=== PATIENT | female | born 1955 | race Caucasian/White ===

== ENCOUNTER 2024-10-22 16:21 | Inpatient (IN) | payer MEDICARE, SELFPAY ==
[2024-10-22] VITALS (9 sets, daily range): BP systolic 110–156; BP diastolic 71–109; PULSE 96–115; RESP 16–18; TEMP 36.6; O2SAT 93–96; BMI 22.8
--- NOTE | 2024-10-22 16:24 | XRR_ITS ---
PROCEDURE INFORMATION: Exam: XR Chest Exam date and time: 10/22/2024 6:37 PM Age: 69 years old Clinical indication: Cough and shortness of breath TECHNIQUE: Imaging protocol: Radiologic exam of the chest. Views: 1 view. COMPARISON: No relevant prior studies available. FINDINGS: Lungs: Bilateral diffuse increased interstitial lung opacities. Minimal bibasilar subsegmental atelectasis. Pleural spaces: Small bilateral pleural effusions. Heart/Mediastinum: The heart is enlarged. Vasculature: Calcific plaque involves the aortic knob. Bones/joints: Unremarkable. XR/XR chest 1V portable [id number] IMPRESSION: Cardiomegaly with increased interstitial lung opacities likely reflecting a component of interstitial edema with small bilateral pleural effusions.
[2024-10-22 18:09] LABS: Influenza A NEGATIVE (Negative); Influenza B NEGATIVE (Negative); Respiratory Syncytial Virus Ce NEGATIVE (Negative); SARS-CoV-2 PCR NEGATIVE (Negative)
[2024-10-22 18:53] LABS: Bilirubin Urine Negative (Negative); Blood Urine Trace (Negative); Glucose Urine UA Negative (Normal); Ketones Urine Negative (Negative); Leukocyte Esterase Urine Trace (Negative); Nitrate Urine Positive (Negative); Protein Urine Negative (Negative); Specific Gravity, Urine 1.004 (1.005-1.030); Urine Appearance Clear (CLEAR); Urine Color Yellow (Yellow); Urobilinogen Urine 0.2 mg/dL (Negative)
[2024-10-22 18:58] LABS: Add Urine Microscopic? YES; Bacteria Urine 4+ /hpf; Hyaline Casts Urine 0-4 /lpf; RBC Urine 0-2 /hpf (0-2); Squamous Epithelial Cell Urine 0-5 /hpf (0-5); WBC Urine 0-5 /hpf (0-5)
[2024-10-22 19:01] LABS: Add Urine Culture? No
[2024-10-22 20:35] LABS: Basophils % 0.3 %; Hematocrit 40.4 % (36-47); Lymphocytes # 1.1 10^3/uL (0.8-4.8); Lymphocytes % 17.7 %; Mean Corpuscular HGB Conc 32.9 g/dL (30-55); Mean Corpuscular Hemoglobin 32.7 pg (27-33); Mean Corpuscular Volume 99.3 fl (85-98); Mean Platelet Volume 9.3 fL (7.4-10.4); Monocytes # 0.1 10^3/uL (0.2-0.9); Neutrophils # 4.79 10^3/uL (1.8-7.7); Neutrophils % 79.8 %; Nucleated Red Blood Cells % 0 %; Platelet Count 252 10^3/cmm (157-399); Red Blood Count 4.07 10^6/uL (3.85-5.65); Red Cell Distribution Width 13.5 % (12.1-15.1)
--- NOTE | 2024-10-22 20:37 | ED_ITS ---
HPI - URI/Sore Throat 2 General: Chief Complaint: Upper Respiratory Infection Stated Complaint: conjestion/cough Time Seen by Provider: 10/22/24 19:17 Source: patient Mode of arrival: ambulatory Limitations: no limitations History of Present Illness: 69-year-old female states she has been h aving cough congestion going on for the last 2 weeks states she has been also having some sores in her mouth sore throat and difficulty swallowing. States that today she just started Magic mouthwash. She denies any vomiting or diarrhea she is in no distress here. She states she is also been having some shortness of breath. She states she has had some exertional dyspnea along with dyspnea when she lays flat. Associated symptoms: Deny abdominal pain, chills, chest pain, diarrhea, fever(s), headache(s), nausea or vomiting Related Data Home Medications ?Medication ?Instructions ?Recorded ?Confirmed No Known Home Medications 10/23/2404/09 Allergies Allergy/AdvReac Type Severity Reaction Status Date / Time hydrocodone Allergy ALGY-Redness Verified 10/22/24 17:01 of Skin Review of Systems 2 Const: Denies: fever(s), chills, body aches or change in appetite ENMT: Denies: throat pain or dental pain Card: Denies: chest pain Resp: Reports: dyspnea GI: Denies: abdominal pain, nausea, vomiting or diarrhea Musc: Denies: neck pain or back pain Skin/Breast: Denies: rash Neuro: Denies: headache(s) PFSH ED 2 PFSH: Medical History Sleep apnea Surgical History S/P cholecystectomy Physical Exam 2 Const: COMMON NORMALS: patient oriented x3 HENMT: COMMON NORMALS: normocephalic and atraumatic HEAD & SCALP: n ormocephalic and atraumatic Eye: COMMON NORMALS: Equal, round and reactive pupils present and EOMs intact bilaterally PUPIL: Yes Equal, round and reactive pupils present Neck/C-Spine: COMMON NORMALS: full ROM and supple Chest: COMMONS NORMALS: normal inspection of the chest and normal palpation of entire chest wall Resp: COMMON NORMALS: normal respiratory effort, No retractions, No use of accessory muscles and clear to auscultation bilaterally AUSCULTATION: clear to auscultation bilaterally Cardio: COMMON NORMALS: regular rhythm and No murmurs present (Cardio) R ATE: tachycardic RHYTHM: regular rhythm GI: COMMON NORMALS: Normal to inspection, nondistended, normoactive bowel sounds present, Soft to palpation, non-tender and no masses PALPATION: Yes Soft to palpation Extremity: COMMON NORMALS: normal to inspection and full ROM Neuro: COMMON NORMALS: patient oriented x3, moves all extremities and no focal motor deficits Psych: COMMON NORMALS: mental status grossly normal, Normal thought process present and cooperative THOUGHT PROCESS: Normal thought process present Skin: COMMON NORMALS: no rashes or lesions noted and no wounds GENERAL SKIN EXAM: no rashes or lesions noted Course 2 Vital Signs: Vital signs: Vital Signs Temperature 97.9 F 10/24/24 12:06 Pulse Rate 72 10/24/24 12:06 Respiratory Rate 17 10/24/24 12:06 Blood Pressure 102/65 10/24/24 12:06 Pulse Oximetry 94 10/24/24 12:06 Oxygen Delivery Me thod Room Air 10/24/24 07:46 MDM - URI/Sore Throat Medical Decision Making Patient presents here with dyspnea send elevated BNP cardiomegaly likely new onset CHF I did speak to the hospitalist will admit at this time. Medical Records I reviewed the patient's medical records. Lab Data I reviewed the patient's lab results. 10/23/24 02:13 10/23/24 02:13 Radiology Impressions Chest X-Ray 10/22/24 16:24 IMPRESSION: Cardiomegaly with increased interstitial lung opacities likely reflecting a component of interstitial edema with small bilateral pleural effusions. Chest CTA 10/22/24 21:38 IMPRESSION: 1. Negative exam for pulmonary embolus and aortic dissection. 2. Cardiomegaly associated with bilateral diffuse predominantly interstitial edema with small bilateral pleural effusions. 3. Mediastinal and hilar lymphadenopathy likely reactive. Laboratory Results WBC 6.00 10^3/uL (3.29-11.43) 10/22/24 20:17 RBC 4.07 10^6/uL (3.85-5.65) 10/22/24 20:17 Hgb 13.30 g/dL (11.27-16.99) 10/22/24 20:17 Hct 40.4 % (36-47) 10/22/24 20:17 MCV 99.3 fl (85-98) H 10/22/24 20:17 MCH 32.7 pg (27-33) 10/22/24 20:17 MCHC 32.9 g/dL (30-55) 10/22/24 20:17 RDW 13.5 % (12.1-15.1) 10/22/24 20:17 Plt Count 252 10^3/cmm (157-399) 10/22/24 20:17 MPV 9.3 fL (7.4-10.4) 10/22/24 20:17 Neut % (Auto) 79.8 % 10/22/24 20:17 Lymph % (Auto) 17.7 % 10/22/24 20:17 [place] % (Auto) 2.0 % 10/22/24 20:17 Eos % (Auto) 0.0 % 10/22/24 20:17 Baso % (Auto) 0.3 % 10/22/24 20:17 Neut # (Auto) 4.79 10^3/uL (1.8-7.7) 10/22/24 20:17 Lymph # (Auto) 1.1 10^3/uL (0.8-4.8) 10/22/24 20:17 [place] # (Auto) 0.1 10^3/uL (0.2-0.9) L 10/22/24 20:17 Eos # (Auto) 0.0 10^3/uL (0.0-0.8) 10/22/24 20:17 Baso # (Auto) 0.0 10^3/uL (0.0-0.1) 10/22/24 20:17 Nucleated RBC % (auto) 0 % 10/22/24 20:17 Nucleated RBCs # 0.0 /100WBC 10/22/24 20:17 Sodium 139 mmol/L (136-145) 10/22/24 20:17 Potassium 4.5 mmol/L (3.5-5.1) 10/22/24 20:17 Chloride 101 mmol/L (98-107) 10/22/24 20:17 Carbon Dioxide 24 mmol/L (22-29) 10/22/24 20:17 Anion Gap 18.5 (5-19) 10/22/24 20:17 BUN 9 mg/dL (8-23) 10/22/24 20:17 Creatinine 0.6 mg/dL (0.5-0.9) 10/22/24 20:17 GFR Calculation Not Reportable 10/22/24 20:17 Glucose 143 mg/dL (65-115) H 10/22/24 20:17 Calculated Osmolality 289 mOsm/kg (285-295) 10/22/24 20:17 Calcium 10.4 mg/dL (8.5-10.5) 10/22/24 20:17 Total Bilirubin 0.9 mg/dL (0.15-1.2) 10/22/24 20:17 AST 25 U/L (0-32) 10/22/24 20:17 ALT 17 U/L (0-33) 10/22/24 20:17 Alkaline Phosphatase 178 U/L (35-105) H 10/22/24 20:17 Troponin T Baseline 14 ng/L (0-10) H 10/22/24 20:17 Troponin T 120 Minute 12.84 ng/L (0-10) H 10/22/24 22:02 Delta Troponin T -1.16 ABS# (0-10) L 10/22/24 22:02 NT-Pro-B Natriuret Pep 9300 pg/mL (0-125) H 10/22/24 20:17 Total Protein 8.3 g/dL (6.6-8.7) 10/22/24 20:17 Albumin 4.6 g/dL (3.5-5.2) 10/22/24 20:17 Globulin 3.7 g/dL (1.3-4.6) 10/22/24 20:17 Vitamin B12 688 pg/mL (232-1245) 10/22/24 20:17 Urine Color Yellow (Yellow) 10/22/24 17:05 Urine Appearance Clear (CLEAR) 10/22/24 17:05 Urine pH 6.0 (5-7) 10/22/24 17:05 Ur Specific [place] 1.004 (1.005-1.030) L 10/22/24 17:05 Urine Protein Negative (Negative) 10/22/24 17:05 Urine Glucose (UA) Negative (Normal) 10/22/24 17:05 Urine Ketones Negative (Negative) 10/22/24 17:05 Urine Blood Trace (Negative) A 10/22/24 17:05 Urine Nitrate Positive (Negative) A 10/22/24 17:05 Urine Bilirubin Negative (Negative) 10/22/24 17:05 Urine Urobilinogen 0.2 mg/dL (Negative) 10/22/24 17:05 Ur Leukocyte Esterase Trace (Negative) A 10/22/24 17:05 Urine RBC 0-2 /hpf (0-2) 10/22/24 17:05 Urine WBC 0-5 /hpf (0-5) 10/22/24 17:05 Ur Squamous Epith Cells 0-5 /hpf (0-5) 10/22/24 17:05 Amorphous Sediment Not Reportable 10/22/24 17:05 Urine Bacteria 4+ /hpf (NONE) H 10/22/24 17:05 Hyaline Casts 0-4 /lpf H 10/22/24 17:05 Coronavirus (PCR) Negative (Negative) 10/22/24 17:05 Influenza A (PCR) Negative (Negative) 10/22/24 17:05 Influenza Type B (PCR) Negative (Negative) 10/22/24 17:05 RSV (PCR) Negative (Negative) 10/22/24 17:05 All radiology interpretation(s) finalized by discharge EKG Data EKG 1: I personally reviewed and interpreted this EKG as follows: EKG interpretation date: 10/22/24 EKG interpretation time: 21:34 Interpretation: sinus tach hr [address] elevation qrs 98 qtc 393 Discharge Plan Discharge Patient Disposition: Admitted As Inpatient Admit Provider: So Banerjee Clinical Impression: Pulmonary edema, Dyspnea Condition: Stable Coding Level of Care Code ED Accordion Tuner for Chg Isadora
[2024-10-22] MEDS: dexamethasone 10 mg/mL INJ IM (20:54)
[2024-10-22 21:00] LABS: Alanine Aminotransferase 17 U/L (0-33); Albumin Level 4.6 g/dL (3.5-5.2); Alkaline Phosphatase 178 U/L (35-105); Anion Gap 18.5 (5-19); Aspartate Amino Transferase 25 U/L (0-32); Blood Urea Nitrogen 9 mg/dL (8-23); Calcium 10.4 mg/dL (8.5-10.5); Carbon Dioxide 24 mmol/L (22-29); Chloride 101 mmol/L (98-107); Creatinine Clr Calc Pharmacy 57.9894; Globulin 3.7 g/dL (1.3-4.6); Glucose 143 mg/dL (65-115); NT Pro B Type Natriuretic Pept 9300 pg/mL (0-125); Osmolality Calculated 289 mOsm/kg (285-295); Potassium 4.5 mmol/L (3.5-5.1); Sodium 139 mmol/L (136-145); Total Bilirubin 0.9 mg/dL (0.15-1.2); Total Protein 8.3 g/dL (6.6-8.7)
--- NOTE | 2024-10-22 21:34 | ECG_ITS ---
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 Measurements Intervals [place] Rate: 111 P: 1 [place]: 135 QRS: 67 QRSD: 98 T: -68 QT: 328 QTc: 446 Interpretive Statements SINUS TACHYCARDIA ST DEVIATION AND MODERATE T-WAVE ABNORMALITY, CONSIDER INFERIOR ISCHEMIA [-0.1+ mV T-WAVE IN II/aVF] No previous ECG available for comparison Electronically Signed On 10-22-2024 21:47:25 INDUSTRIAL ENGINEERING PROFESSOR by Aries Lynch M.D. [email or web address]
--- NOTE | 2024-10-22 21:38 | CTR_ITS ---
PROCEDURE INFORMATION: Exam: CTA Chest With Contrast Exam date and time: 10/22/2024 9:50 PM Age: 69 years old Clinical indication: Shortness of breath; Additional info: SOB TECHNIQUE: Imaging protocol: Computed tomographic angiography of the chest with contrast. Exam focused on the arteries. 3D rendering (Not supervised by radiologist): MIP and/or 3D reconstructed images were created by the technologist. Radiation optimization: All CT scans at this facility use at least one of these dose optimization techniques: automated exposure control; mA and/or kV adjustment per patient size (includes targeted exams where dose is matched to clinical indication); or iterative reconstruction. Contrast material: OMNI 350; Contrast volume: 75 ml; Contrast route: INTRAVENOUS (IV); COMPARISON: CR (CHEST, ) 10/22/2024 6:37 PM RADIATION DOSE METRICS: Total DLP (mGy-cm): 272.88 FINDINGS: Pulmonary arteries: Normal. No pulmonary emboli. Aorta: Calcific plaque involves the thoracic aorta and coronary arteries. The thoracic aorta is free of aneurysm and dissection. Lungs: Bilateral perihilar interlobular septal thickening present with scattered ground-glass opacities. Pleural spaces: Small bilateral pleural effusions. Heart: Unremarkable. No cardiomegaly. No pericardial effusion. Lymph nodes: Mediastinal and hilar lymphadenopathy present. There is a right hilar lymph node measuring approximately 2.4 x 1.8 cm. Diaphragm: A small hiatal hernia present. Liver: The visualized portions of the upper abdomen demonstrates multiple hepatic cysts. Bones/joints: Mild degenerative changes involve the spine. No acute bony abnormality. Soft tissues: Unremarkable. CT/CT angio chest PE protcl [id number] IMPRESSION: 1. Negative exam for pulmonary embolus and aortic dissection. 2. Cardiomegaly associated with bilateral diffuse predominantly interstitial edema with small bilateral pleural effusions. 3. Mediastinal and hilar lymphadenopathy likely reactive.
[2024-10-22] MEDS: iohexol 350 mg/mL 500 mL Btl (per mL) IV (21:54)
[2024-10-22 21:56] LABS: Troponin(5th) Baseline 14 ng/L (0-10)
[2024-10-22] MEDS: cefTRIAXone 1,000 mg SDV 1000 MG IVP (22:02)
--- NOTE | 2024-10-22 22:09 | USCV_ITS ---
Elina Gore Age: 69 Gender: F : 1955 Exam Date: 10/22/2024 22:32 Ordering Phys: So Banerjee MD Technologist: CARLITA Exam Location: [facility] – [place] Indication: new chf BP: 110 / 76 HR: 100 Rhythm: Atrial fibrillation Technical Quality: Adequate MEASUREMENTS (Male / Female) Normal Values 2D ECHO LV Diastolic Diameter PLAX 4.9 cm 4.2 - 5.9 / 3.9 - 5.3 cm IVS Diastolic Thickness 0.9 cm 0.6 - 1.0 / 0.6 - 0.9 cm IVS Systolic Thickness 1.3 cm LVPW Diastolic Thickness 0.9 cm 0.6 - 1.0 / 0.6 - 0.9 cm LVPW Systolic Thickness 0.9 cm LVOT Diameter 1.9 cm LV Ejection Fraction 2D Teich 11.1 % LV Ejection Fraction MOD 4C 9.4 % LV Ejection Fraction MOD 2C 23.1 % LV Ejection Fraction 2C AL 23.5 % LA Diameter 4.3 cm Aorta at Sinotubular Diameter 2.6 cm IVC Diameter 1.2 cm M-MODE LA Ao Ratio MM 1.5 AV Cusp Separation MM 1.7 cm DOPPLER AV Peak Velocity 90.0 cm/s LVOT Peak Velocity 47.0 cm/s AV Area Cont Eq vti 1.4 cm squared AV Area Cont Eq pk 1.5 cm squared MV Peak Velocity 196.0 cm/s MV Area PHT 3.5 cm squared Mitral E to A Ratio 0.0 TV Peak Velocity 373.5 cm/s TR Peak Velocity 395.0 cm/s TR Peak Gradient 62.4 mmHg TV Peak E Velocity 104.0 cm/s PV Peak Velocity 67.0 cm/s FINDINGS Left Ventricle Left ventricle is normal in size. LV systolic function is severely reduced with EF of 20-25%. Severe global hypokinesis. Right Ventricle Mildly hypokinetic Right Atrium Normal in size Left Atrium Normal in size Mitral Valve Structurally normal mitral valve. Mild to moderate mitral regurgitation. Mild to moderately elevated gradients across mitral valve of 5.8mmHg Aortic Valve Structurally normal aortic valve. No significant stenosis. Tricuspid Valve Mild to moderate tricuspid regurgitation. RVSP is >60 mmHg. This is consistent with severe pulmonary hypertension Pulmonic Valve Not well visualized Pericardium Pleural effusion seen Aorta Normal in size IVC Appears to be normal CONCLUSIONS LV systolic function severely reduced with EF of 25%. Moderate mitral regurgitation. Mild to moderately elevated gradients across mitral valve of 5.8 mmHg Mild to moderate tricuspid regurgitation. severe pulmonary hypertension Pleural effusion seen Aries Lynch MD (Electronically Signed) Final Date: 23 October 2024 14:09 S
--- NOTE | 2024-10-22 22:09 | P.HP_ITS ---
Providers/Chief Complaint 2 Chief Complaint: conjestion/cough History of Present Illness Cherri Gore is a 69 year old female without significant past medical history other than recently started using CPAP for sleep apnea, has been experiencing hoarseness of voice, presented with chief complaint of worsening of shortness of breath for last 2 to 3 weeks. Patient has not experienced any fever, nausea, vomiting, diarrhea or chest pain. She has been experiencing orthopnea, PND, poor appetite, weight loss. She recently started using Magic mouthwash and prednisone for her hoarseness of voice and difficult to swallow solid foods. She has been experiencing mild sores as well. Her son-in-law prescribed Magic mouthwash and prednisone. Patient does not carry any history of congestive heart failure, [place], hypertension, diabetes, cancer or stroke. Does not smoke or drink alcohol. She lives with her . Lives a healthy life. Follows up with PCP at [facility]. Workup in the ER consistent with new onset CHF, she has been tachycardic, requested CTA chest with did not show PE, Patient is hypertensive, not requiring oxygen, patient is stating that she is mostly low blood pressure at home high blood pressure is new for her Review of Systems 2 Const: Denies: fever(s) Eyes: Denies: change in vision or eye discomfort ENMT: Reports: mouth pain Card: Denies: chest pain or swelling of feet/ankles Resp: Denies: dyspnea GI: Denies: abdominal pain : Denies: flank pain Musc: Denies: neck pain Skin/Breast: Denies: rash Medications/Allergies Home Medications ?Medication ?Instructions ?Recorded ?Confirmed ?Last Taken ?Type No Known Home Medications 10/23/2404/09 Unknown History Allergies Allergy/AdvReac Type Severity Reaction Status Date / Time hydrocodone Allergy ALGY-Redness Verified 10/22/24 17:01 of Skin PFSH Acute 2 PFSH: Medical History Sleep apnea Surgical History S/P cholecystectomy Vitals/I&O/Wt Last Vital Signs Temp 97.9 F 10/22/24 16:56 Pulse 108 H 10/22/24 16:56 Resp 18 10/22/24 16:56 BP 110/76 10/22/24 16:56 Pulse Ox 93 10/22/24 16:56 O2 Del Method Room Air 10/22/24 16:56 10/22/24 10/22/24 10/22/24 06:59 14:59 22:59 Intake Total 0 / 0 Balance 0 / 0 Weight last 48 hrs Weight 60.328 kg Physical Exam 2 Narrative: Patient is awake and alert Currently on room air Hypertensive, systolic blood pressure 140 Bilateral breath sounds diminished left greater than right does not appreciate any crackles wheezing or rhonchi Abdomen soft Lower extremity wrinkling noted no significant edema Pleasant and cooperative Nonfocal neuroexam GCS 15 I did not appreciate any signs of oral thrush Patient does have aphthous ulcers Cracked lips Hoarseness of voice Data 10/22/24 20:17 10/22/24 20:17 A&P Assessment and plan (1) Pulmonary edema: (2) Dyspnea: (3) New onset of congestive heart failure: (4) HTN (hypertension): Plan New onset CHF Small bilateral pleural effusion No active chest pain Troponin not significantly high No history of coronary disease Patient has recently started using CPAP for sleep apnea Rule out thyroid abnormality Serial troponin and EKG EKG not showing any ischemic or infarctive changes Will request echo Start low-dose Lasix For new onset CHF patient will need cardiology consultation for further workup Sinus tachycardia Rule out thromboembolic disease CTA chest did not show any PE Lower extremity no significant edema Hypertension: New onset Patient does not use any antihypertensive regimen stating that her blood pressure is normally on the lower side I will start low-dose lisinopril at this point Sleep apnea: Continue CPAP Hoarseness of voice: Could be related to GERD, hiatal hernia evident on CTA chest, add Protonix patient is endorsing odynophagia, weight loss, Once we know her echo report, and she gets diuresed and able to lay flat she will need an EGD for further diagnosis She does have red flags of weight loss, age above 45, hoarseness of voice, odynophagia This could be done outpatient, no urgency at this point Check TSH, free T4 rule out thyroid abnormality Hilar lymphadenopathy: 2.4 x 1.8 cm Right hilar lymphadenopathy Cardiac diet DVT prophylaxis: Lovenox Full code PDMP PDMP Reviewed: Not Reviewed Attestations 2 Medical Necessity Statement*: Anticipating more than 2 midnights for evaluation of odynophagia, new onset CHF, newly diagnosed hypertension Diagnoses Pulmonary edema J81.1 Dyspnea R06.00 New onset of congestive heart failure I50.9 HTN (hypertension) I10
[2024-10-22] MEDS: FUROsemide 10 mg/mL SDV 2mL 20 MG IVP (22:23)
[2024-10-22 22:30] LABS: Troponin 5 2HR 12.84 ng/L (0-10); Troponin 5 2HR Delta -1.16 ABS# (0-10)
[2024-10-23] VITALS (13 sets, daily range): BP systolic 99–141; BP diastolic 61–86; PULSE 72–110; RESP 14–19; TEMP 36.4–36.7; O2SAT 94–98
[2024-10-23 00:15] LABS: Vitamin B12 688 pg/mL (232-1245)
--- NOTE | 2024-10-23 00:38 | ECG_ITS ---
[facility] Test Date: 2024-10-23 Pat Name: Elina Gore Department: Room: 277 Gender: Female Business Change Manager: : 1955 Requested By: So Banerjee Order Number: [id number] Reading MD: SO WELLS Measurements Intervals [place] Rate: 102 P: 30 DE: 169 QRS: 48 QRSD: 105 T: 55 QT: 355 QTc: 464 Interpretive Statements SINUS TACHYCARDIA MODERATE ST DEPRESSION [0.05+ mV ST DEPRESSION] Compared to ECG 10/22/2024 21:34:15 ST (T wave) deviation now present T-wave abnormality no longer present Possible ischemia no longer present Electronically Signed On 10-25-2024 21:05:35 ION IMPLANT MACHINE OPERATOR by SO WELLS [email or web address] [id number]
[2024-10-23 02:22] LABS: Basophils % 0.2 %; Hematocrit 40.2 % (36-47); Lymphocytes # 1.1 10^3/uL (0.8-4.8); Lymphocytes % 18.5 %; Mean Corpuscular HGB Conc 32.8 g/dL (30-55); Mean Corpuscular Hemoglobin 32.4 pg (27-33); Mean Corpuscular Volume 98.5 fl (85-98); Mean Platelet Volume 9.1 fL (7.4-10.4); Monocytes # 0.1 10^3/uL (0.2-0.9); Monocytes % 1.4 %; Neutrophils # 4.69 10^3/uL (1.8-7.7); Neutrophils % 79.7 %; Nucleated Red Blood Cells % 0 %; Platelet Count 237 10^3/cmm (157-399); Red Blood Count 4.08 10^6/uL (3.85-5.65); Red Cell Distribution Width 13.6 % (12.1-15.1); White Blood Count 5.88 10^3/uL (3.29-11.43)
[2024-10-23 02:41] LABS: Estmated Average Glucose 100; Hemoglobin A1C 5.1 % (4.0-6.0); Troponin 5 6HR 18.78 ng/L (0-10); Troponin 5 6HR Delta 4.78 ng/L (0-12)
[2024-10-23 02:42] LABS: Anion Gap 18.6 (5-19); Blood Urea Nitrogen 10 mg/dL (8-23); Calcium 10.1 mg/dL (8.5-10.5); Carbon Dioxide 26 mmol/L (22-29); Chloride 99 mmol/L (98-107); Cholesterol 154 mg/dL (0-200); Creatinine Clr Calc Pharmacy 56.6152; Glucose 156 mg/dL (65-115); HDL Cholesterol 57 mg/dL (60-100); LDL Cholesterol Calculated 85 mg/dL (50-129); LDL HDL Ratio 1.49 RATIO (0.00-3.22); Magnesium 2.1 mg/dL (1.7-2.3); Osmolality Calculated 290 mOsm/kg (285-295); Potassium 4.6 mmol/L (3.5-5.1); Sodium 139 mmol/L (136-145); Triglycerides 58 mg/dL (0-150)
[2024-10-23 02:48] LABS: Free T4 Free Thyroxine 1.49 ng/dL (0.82-1.77); Thyroid Stimulating Hormone 1.32 uIU/mL (0.27-4.20)
--- NOTE | 2024-10-23 03:57 | ECG_ITS ---
[facility] Test Date: 2024-10-23 Pat Name: Elina Gore Department: Room: 277 Gender: Female Business Process Architect: : 1955 Requested By: Patricia Andre Order Number: [id number] Reading MD: SAMINA WELLS Measurements Intervals [place] Rate: 95 P: 91 [place]: 182 QRS: 73 QRSD: 101 T: 67 QT: 383 QTc: 483 Interpretive Statements SINUS RHYTHM NONSPECIFIC ST & T-WAVE ABNORMALITY Compared to ECG 10/23/2024 00:38:57 T-wave abnormality now present Sinus tachycardia no longer present ST (T wave) deviation no longer present Electronically Signed On 10-25-2024 21:13:29 DIRECT CUSTOMER SERVICE REPRESENTATIVE by SAMINA WELLS [id number]
[2024-10-23] MEDS: enoxaparin 40 mg/0.4 mL Syringe SUBCUT (05:14)
[2024-10-23] MEDS: FUROsemide 10 mg/mL SDV 2mL 20 MG IVP (08:16)
[2024-10-23] MEDS: aspirin 81 mg EC Tablet PO (08:16)
[2024-10-23] MEDS: lisinopril 5 mg Tablet PO (08:16)
--- NOTE | 2024-10-23 13:05 | PC.SOCIAL ---
IMM Update pg 2 of IMM Updated and reviewed w/ patient. Copy signed by patient and copy dated, initialed and placed in chart. Copy provided.
--- NOTE | 2024-10-23 15:00 | P.PN_ITS ---
Subjective 2 Subjective: overnight labs and H&P reveiwed. Patient is currently on RA, no new complaints Medications: Reviewed: Yes Vitals/I&O/Wt Last Vital Signs Temp 97.9 F 10/23/24 20:00 Pulse 83 10/23/24 20:00 Resp 17 10/23/24 20:00 BP 102/65 10/23/24 20:00 Pulse Ox 96 10/23/24 20:00 O2 Del Method Room Air 10/23/24 20:00 10/23/24 10/23/24 10/24/24 14:59 22:59 06:59 Intake Total 240 / 240 120 / 360 Balance 240 / 240 120 / 360 Weight last 48 hrs Weight 56.954 kg Weight 56.954 kg Weight 60.328 kg Physical Exam 2 Narrative: General: No acute distress, AO x3 HEENT: PERRLA, pupils bilaterally equal and reactive, pallors not present Chest: Normal vesicular breath sounds, no added sounds, equal good air entry bilaterally CVS: S1-S2 regular, no murmurs, no tachycardia, no gallops, no rubs Abdomen: Soft, nontender, no organomegaly, bowel sounds present Neuro: No focal deficits, no facial deformity, AO x3, power 5/5 in all limbs Data 10/23/24 02:13 10/23/24 02:13 A&P Assessment and plan (1) New onset of congestive heart failure: (2) Pulmonary edema: (3) Dyspnea: Plan (1) Pulmonary edema: (2) Dyspnea: (3) New onset of congestive heart failure: (4) HTN (hypertension): Plan New onset CHF Small bilateral pleural effusion and pulmonary edema No active chest pain Troponin not significantly high, no significant delta No history of coronary disease EKG not showing any acute ischemic or infarctive changes pending echocardiogram Continue Lasix 20mg IVP daily , monitor kideny function and urine output Sleep apnea: Continue CPAP Hoarseness of voice: Could be related to GERD, hiatal hernia evident on CTA chest add Protonix 40 mg bid concerning symptoms of weight loss, age above 45, hoarseness of voice, odynophagia- may need EGD for further diagnostics TSH WNL Hilar lymphadenopathy: 2.4 x 1.8 cm Right hilar lymphadenopathy Cardiac diet DVT prophylaxis: Lovenox Full code PDMP PDMP Reviewed: Not Reviewed Attestations 2 Medical Necessity Statement*: new pulm edema, suspected CHF, awaitng echo Coding Level of Care Code Acute Code for Chg Fwd High MDM includes number and complexity of problems actively addressed during encounter, amount and/or complexity of data reviewed/ordered and described risk of complication, morbidity or mortality of management as documented Diagnoses New onset of congestive heart failure I50.9 Pulmonary edema J81.1 Dyspnea R06.00
[2024-10-23] MEDS: MAGIC MOUTHWASH PO ×2 (16:42→20:24)
[2024-10-24] VITALS: BP 107/66; PULSE 81; RESP 16; TEMP 36.4; O2SAT 95
[2024-10-24 04:00] VITALS: BP 99/60; PULSE 93; RESP 17; TEMP 36.6; O2SAT 93
[2024-10-24] MEDS: enoxaparin 40 mg/0.4 mL Syringe SUBCUT (06:15)
[2024-10-24 07:46] VITALS: BP 102/65; PULSE 72; RESP 17; O2SAT 94
[2024-10-24] MEDS: pantoprazole DR 40 mg Tablet PO (09:07)
[2024-10-24] MEDS: FUROsemide 10 mg/mL SDV 2mL 20 MG IVP (09:07)
[2024-10-24] MEDS: aspirin 81 mg EC Tablet PO (09:07)
[2024-10-24] MEDS: MAGIC MOUTHWASH PO (09:08)
[2024-10-24 12:06] VITALS: BP 102/65; PULSE 72; RESP 17; TEMP 36.6; O2SAT 94
--- NOTE | 2024-10-24 12:45 | P.DS_ITS ---
Discharge Providers Date of Admission: 10/22/24 22:12 Date of Discharge: October 24, 2024 Attending Provider at Admission: So Banerjee MD Attending Provider at Discharge: Mana Espinoza MD Diagnoses at Discharge Discharge Diagnosis (1) New onset of congestive heart failure: Status: Acute (2) Pulmonary edema: Status: Acute (3) Dyspnea: Status: Acute Reason for Visit Reason for Visit: conjestion/cough Hospital Course Hospital Course 69-year-old lady with a past medical history of sleep apnea, recently started on CPAP, presented to the hospital with chief complaints of several weeks of increasing lethargy weakness and shortness of breath. She had had some weight loss. Also had some mouth sores. She was found to be in congestive heart failure. This is acute newly diagnosed systolic heart failure. On CT of the chest patient had evidence of bilateral pulmonary edema and small bilateral pleural effusions, not impressive enough to drain. no PE. She started treatment with IV Lasix and responded well. She remained on room air. Breathing was less labored. Lower extremity edema improved. Echocardiogram resulted today with LV systolic function severely reduced with EF of 25%. Moderate mitral regurgitation. Findings were discussed with patient and her family and discussed next steps of optimizing medications for heart failure and getting a cardiology consult for ischemic evaluation. Family requested patient to be transferred to [facility] as her primary care physician is established with [facility]. While there was no medical indication for transfer, call was placed to [facility] per patient request. Family was updated that there were no beds available at the requested center. At this point family and patient elected to leave our hospital AMA. Physical Exam Narrative: General: No acute distress, AO x3 HEENT: PERRLA, pupils bilaterally equal and reactive, pallors not present Chest: Normal vesicular breath sounds, no added sounds, equal good air entry bilaterally CVS: S1-S2 regular, no murmurs, no tachycardia, no gallops, no rubs Abdomen: Soft, nontender, no organomegaly, bowel sounds present Neuro: No focal deficits, no facial deformity, AO x3, power 5/5 in all limbs Discharge Data Studies Completed and Pending Completed Studies During Hospitalization Category Date Time Status CTA chest [CT angio chest PE protcl [id number]] Stat Cat Scan 10/22/24 21:38 Completed CXRP [XR chest 1V portable [id number]] Stat Exams 10/22/24 16:24 Completed CV. echo complete* [id number] Routine Ultrasound 10/22/24 22:09 Completed Radiology Impressions Chest X-Ray 10/22/24 16:24 IMPRESSION: Cardiomegaly with increased interstitial lung opacities likely reflecting a component of interstitial edema with small bilateral pleural effusions. Chest CTA 10/22/24 21:38 IMPRESSION: 1. Negative exam for pulmonary embolus and aortic dissection. 2. Cardiomegaly associated with bilateral diffuse predominantly interstitial edema with small bilateral pleural effusions. 3. Mediastinal and hilar lymphadenopathy likely reactive. Laboratory Results WBC 5.88 10^3/uL (3.29-11.43) 10/23/24 02:13 RBC 4.08 10^6/uL (3.85-5.65) 10/23/24 02:13 Hgb 13.20 g/dL (11.27-16.99) 10/23/24 02:13 Hct 40.2 % (36-47) 10/23/24 02:13 MCV 98.5 fl (85-98) H 10/23/24 02:13 MCH 32.4 pg (27-33) 10/23/24 02:13 MCHC 32.8 g/dL (30-55) 10/23/24 02:13 RDW 13.6 % (12.1-15.1) 10/23/24 02:13 Plt Count 237 10^3/cmm (157-399) 10/23/24 02:13 MPV 9.1 fL (7.4-10.4) 10/23/24 02:13 Neut % (Auto) 79.7 % 10/23/24 02:13 Lymph % (Auto) 18.5 % 10/23/24 02:13 [place] % (Auto) 1.4 % 10/23/24 02:13 Eos % (Auto) 0.0 % 10/23/24 02:13 Baso % (Auto) 0.2 % 10/23/24 02:13 Neut # (Auto) 4.69 10^3/uL (1.8-7.7) 10/23/24 02:13 Lymph # (Auto) 1.1 10^3/uL (0.8-4.8) 10/23/24 02:13 [place]son # (Auto) 0.1 10^3/uL (0.2-0.9) L 10/23/24 02:13 Eos # (Auto) 0.0 10^3/uL (0.0-0.8) 10/23/24 02:13 Baso # (Auto) 0.0 10^3/uL (0.0-0.1) 10/23/24 02:13 Nucleated RBC % (auto) 0 % 10/23/24 02:13 Nucleated RBCs # 0.0 /100WBC 10/23/24 02:13 D-Dimer 1.30 ug/mLFEU (0-0.59) H 10/23/24 02:13 Sodium 139 mmol/L (136-145) 10/23/24 02:13 Potassium 4.6 mmol/L (3.5-5.1) 10/23/24 02:13 Chloride 99 mmol/L (98-107) 10/23/24 02:13 Carbon Dioxide 26 mmol/L (22-29) 10/23/24 02:13 Anion Gap 18.6 (5-19) 10/23/24 02:13 BUN 10 mg/dL (8-23) 10/23/24 02:13 Creatinine 0.6 mg/dL (0.5-0.9) 10/23/24 02:13 GFR Calculation Not Reportable 10/23/24 02:13 Glucose 156 mg/dL (65-115) H 10/23/24 02:13 Estimat Average Glucose 100 10/23/24 02:13 Hemoglobin A1c 5.1 % (4.0-6.0) 10/23/24 02:13 Calculated Osmolality 290 mOsm/kg (285-295) 10/23/24 02:13 Calcium 10.1 mg/dL (8.5-10.5) 10/23/24 02:13 Magnesium 2.1 mg/dL (1.7-2.3) 10/23/24 02:13 Total Bilirubin 0.9 mg/dL (0.15-1.2) 10/22/24 20:17 AST 25 U/L (0-32) 10/22/24 20:17 ALT 17 U/L (0-33) 10/22/24 20:17 Alkaline Phosphatase 178 U/L (35-105) H 10/22/24 20:17 Troponin T Baseline 14 ng/L (0-10) H 10/22/24 20:17 Troponin T 120 Minute 12.84 ng/L (0-10) H 10/22/24 22:02 Delta Troponin T -1.16 ABS# (0-10) L 10/22/24 22:02 Troponin T Hi Sens 6Hr 18.78 ng/L (0-10) H 10/23/24 02:13 Troponin T Hi Sens 6Hr Delta 4.78 ng/L (0-12) 10/23/24 02:13 NT-Pro-B Natriuret Pep 9300 pg/mL (0-125) H 10/22/24 20:17 Total Protein 8.3 g/dL (6.6-8.7) 10/22/24 20:17 Albumin 4.6 g/dL (3.5-5.2) 10/22/24 20:17 Globulin 3.7 g/dL (1.3-4.6) 10/22/24 20:17 Triglycerides 58 mg/dL (0-150) 10/23/24 02:13 Cholesterol 154 mg/dL (0-200) 10/23/24 02:13 LDL Cholesterol, Calc 85 mg/dL (50-129) 10/23/24 02:13 HDL Cholesterol 57 mg/dL (60-100) L 10/23/24 02:13 LDL/HDL Ratio 1.49 RATIO (0.00-3.22) 10/23/24 02:13 Cholesterol/HDL Ratio 2.70 mg/dL (0.0-4.40) 10/23/24 02:13 Vitamin B12 688 pg/mL (232-1245) 10/22/24 20:17 TSH 1.32 uIU/mL (0.27-4.20) 10/23/24 02:13 Free T4 1.49 ng/dL (0.82-1.77) 10/23/24 02:13 Urine Color Yellow (Yellow) 10/22/24 17:05 Urine Appearance Clear (CLEAR) 10/22/24 17:05 Urine pH 6.0 (5-7) 10/22/24 17:05 Ur Specific [facility] 1.004 (1.005-1.030) L 10/22/24 17:05 Urine Protein Negative (Negative) 10/22/24 17:05 Urine Glucose (UA) Negative (Normal) 10/22/24 17:05 Urine Ketones Negative (Negative) 10/22/24 17:05 Urine Blood Trace (Negative) A 10/22/24 17:05 Urine Nitrate Positive (Negative) A 10/22/24 17:05 Urine Bilirubin Negative (Negative) 10/22/24 17:05 Urine Urobilinogen 0.2 mg/dL (Negative) 10/22/24 17:05 Ur Leukocyte Esterase Trace (Negative) A 10/22/24 17:05 Urine RBC 0-2 /hpf (0-2) 10/22/24 17:05 Urine WBC 0-5 /hpf (0-5) 10/22/24 17:05 Ur Squamous Epith Cells 0-5 /hpf (0-5) 10/22/24 17:05 Amorphous Sediment Not Reportable 10/22/24 17:05 Urine Bacteria 4+ /hpf (NONE) H 10/22/24 17:05 Hyaline Casts 0-4 /lpf H 10/22/24 17:05 Coronavirus (PCR) Negative (Negative) 10/22/24 17:05 Influenza A (PCR) Negative (Negative) 10/22/24 17:05 Influenza Type B (PCR) Negative (Negative) 10/22/24 17:05 RSV (PCR) Negative (Negative) 10/22/24 17:05 Vitals Last Vital Signs Temp 97.9 F 10/24/24 12:06 Pulse 72 10/24/24 12:06 Resp 17 10/24/24 12:06 BP 102/65 10/24/24 12:06 Pulse Ox 94 10/24/24 12:06 O2 Del Method Room Air 10/24/24 07:46 Discharge Plan Discharge Patient Disposition: Left Against Medical Advice Condition: Stable Prescriptions: No Action No Known Home Medications Patient Instructions: Opioid Safety Discharge Attestations Time Spent in Discharge Care*: greater than 30 min Quality Metrics Clinical Quality Measures [ No reported AMI, CVA or VTE this stay] Coding Level of Care Code Acute Code for Chg Fwd Diagnoses New onset of congestive heart failure I50.9 Pulmonary edema J81.1 Dyspnea R06.00
== END 2024-10-24 11:22 | disposition left against medical advice (07) | DRG 291 ==
LOC: ER 21:44 → ER IP 22:12 → MEDSURG 10-23 02:07
PROVIDERS: Emergency Medicine; Admitting Provider Internal Medicine; Emergency Provider Emergency Medicine; Visit Provider Student in an Organized Health Care Education/Training Program
DX: I11.0 Hypertensive heart disease with heart failure (principal); I50.21 Acute systolic (congestive) heart failure; G47.00 Insomnia, unspecified; Z53.29 Procedure and treatment not carried out because of patient's decision for other reasons; R00.0 Tachycardia, unspecified; R59.0 Localized enlarged lymph nodes; K44.9 Diaphragmatic hernia without obstruction or gangrene
CPT/HCPCS: 36415; 71045; 71275; 80048; 80053; 80061; 81001; 82607; 83036; 83735; 83880; 84439; 84443; 84484; 85025; 85378; 87637; 92610; 93005; 93306; 94664; 96372; 96374; 96375; 99285; J0696; J1100; J1650; J1940